=== PATIENT | female | born 1935 | race Caucasian/White ===

== ENCOUNTER 2019-08-14 17:20 | Emergency (ER) | payer MEDICARE ==
[2019-08-14] MEDS ORDERED: TYLENOL EXTRA STRENGTH 500 MG PO STA (17:55)
[2019-08-14] MEDS ORDERED: TYLENOL EXTRA STRENGTH 500 MG ONE (18:01)
--- NOTE | 2019-08-14 18:07 | ERPHSYRPT ---
- History of Present Illness Time Seen by Provider: 08/14/19 17:26 Source: patient Exam Limitations: no limitations Patient Subjective Stated Complaint: PT FELL WALKING OFF OF CURB AT LOCAL FESTIVAL. ATTEMPTED TO CATCH SELF WITH RIGHT HAND, FACE HIT CONCRETE. PT DENIES ANY OTHER JOINT PAIN OR LOSS OF CONCIOUSNESS. Triage Nursing Assessment: ALERT AND ORIENTED. SWELLING OT RIGHT HAND ON KNUCKLES. PAIN 10/10 TO RIGHT HAND. PT GUARDING HAND. SON PUSHED PT IN W/C TO ROOM. Physician History: 84-year-old female here after fall. [place] Tripped and fell on the curb. B right hand and her face. Has a bruise over her nose and upper lip but doesn't hurt. Mostly hurts in the right hand area. No loss of consciousness. No nausea vomiting. No headache. Allergies/Adverse Reactions: Sulfa (Sulfonamide Antibiotics) Allergy (Verified 08/14/19 17:42) Home Medications: Metoprolol Tartrate 25 mg [Lopressor 25MG Tab] 25 mg PO BID 08/14/19 [ History] Omeprazole 20 mg PO DAILY 08/14/19 [History] RX: Quinapril HCl 40 mg PO DAILY 08/14/19 [History] Simvastatin 20Mg [Zocor 20Mg] 20 mg PO QPM 08/14/19 [History] Hx Tetanus, Diphtheria Vaccination/Date Given: No Hx Pneumococcal Vaccination/Date Given: No - Review of Systems Constitutional: No Symptoms Eyes: No Symptoms Ears, Nose, & Throat: Ear Pain, Ear Discharge, Hearing Changes Respiratory: No Symptoms Cardiac: No Symptoms Abdominal/Gastrointestinal: No Symptoms Genitourinary Symptoms: No Symptoms Musculoskeletal: Fall Neurological: No Symptoms Immunological/Allergic: No Symptoms - Past Medical History Pertinent Past Medical History: Yes Neurological History: No Pertinent History Cardiac History: High Cholesterol, Hypertension GI Medical History: GERD History: Renal Disease - Past Surgical History Past Surgical History: Yes Gastrointestinal: Cholecystectomy - Social History Smoking Status: Never smoker Exposure to second hand smoke: No Drug Use: none Patient Lives Alone: Yes - Nursing Vital Signs Nursing Vital Signs: Initial Vital Signs Temperature 98.1 F 08/14/19 17:34 Pulse Rate 78 08/14/19 17:34 Respiratory Rate 20 08/14/19 17:34 Blood Pressure 196/134 08/14/19 17:34 O2 Sat by Pulse Oximetry 94 L 08/14/19 17:34 Pain Scale Pain Intensity 4 - [place] Coma Score Best Eye Response (Kemal): (4) open spontaneously Best Verbal Response (Kemal): (5) oriented Best Motor Response (Kemal): (6) obeys commands [place] Total: 15 - Physical Exam General Appearance: no apparent distress Head Injury: no evidence of injury Eye Exam: PERRL/EOMI, eyes nml inspection ENT Exam: airway nml ("small bruising over the nose and upper lip./ no tenderness. no oral injuries noted) Neck Exam: supple, full range of motion Respiratory/Chest Exam: normal breath sounds Cardiovascular Exam: normal heart sounds Gastrointestinal Exam: soft, normal bowel sounds Back Exam: normal inspection, normal range of motion Extremity Exam: other (Right hand swelling in the third and fourth metacarpal areas posteriorly. Decreased range of motion do to pain. Slightly tender on palpation. 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, nml cerebellar function, nml station & gait, No motor deficits, No sensory deficit Skin Exam: normal color, warm, other (as noted in heent) SpO2: 94 Ordered Tests: Active Orders 24 hr Category Date Time Status Splint STAT Care 08/14/19 20:21 Active FACIAL BONES WO CONTRAST [CT] Stat Exams 08/14/19 17:54 Taken HAND (MINIMUM 3 VIEWS) Stat Exams 08/14/19 18:47 Completed HEAD WITHOUT CONTRAST [CT] Stat Exams 08/14/19 17:54 Taken Medication Summary Discontinued Medications Generic Name Dose Route Start Last Admin Trade Name [place] PRN Reason Stop Dose Admin Acetaminophen 500 mg 08/14/19 17:55 08/14/19 18:03 Tylenol Extra Strength 500 Mg PO 08/14/19 17:56 500 mg STAT STA Administration Acetaminophen Confirm 08/14/19 18:01 Tylenol Extra Strength 500 Mg Administered 08/14/19 18:02 Dose 500 mg .ROUTE .STK-MED ONE - Progress Progress: improved Counseled pt/family regarding: diagnosis, need for follow-up (fracture of the right hand fifth and third metacarpal areas nondisplaced. Splint applied. Patient advised to followup with orthopedics in a few days time. CT head paramedics official results are not back even after 3 hours so patient did not want to stay. She denies any pain on her face or headache. No numbness tingling or weakness. And comfortable letting her go and told her if there is anything on CT I would call her.), rad results - Departure Departure Disposition: Home Clinical Impression: Facial injury, Fracture, metacarpal Condition: Stable Critical Care Time: No Referrals: MELY LIZ [Primary Care Provider] -
--- NOTE | 2019-08-14 20:33 | XRAY ---
Indication: Pain following fall. Comparison: None 3 views of the right hand demonstrates nondisplaced distal 5th metacarpal shaft and nondisplaced 3rd proximal phalanx base fractures with adjacent soft tissue swelling. Elsewhere osteopenia, mild degenerative changes, and 4th finger ring.
[2019-08-14 21:42] VITALS: BP 166/75; PULSE 66; O2SAT 96
--- NOTE | 2019-08-15 06:27 | XRAY ---
Indication: Facial injury and swelling following fall. Multiple contiguous axial images obtained through the head without contrast. Comparison: None Age-appropriate global atrophy and minimal periventricular degenerative micro-ischemia bilaterally. No acute intracranial hemorrhage, abnormal extra-axial fluid collection, or mass effect. Fourth ventricle is midline without hydrocephalus. Bony calvarium intact with incidental hyperostosis frontalis interna. There is partial opacification of the inferior left mastoid air cells. Remaining visualized paranasal sinuses and right mastoid air cells are clear. CT facial bones reported separately. Impression: Nonacute senile brain. Nonspecific opacification of the left mastoid air cells. Comment: Preliminary interpretation was made by [facility]. No critical discrepancy. CTDI 67.00
--- NOTE | 2019-08-15 10:41 | XRAY ---
Indication: Facial injury and swelling following fall. Multiple contiguous axial images obtained through the facial bones. Sagittal and coronal reformatted images obtained. Comparison: None Spine of the maxilla demonstrates displaced fracture with soft tissue swelling. No other acute fracture, suspicious bone lesions, or radiopaque foreign body. Orbits including roof, esquivel, and floors intact. Paranasal sinuses and nasal passages are clear. Mild nasal septal deviation to the left. Mild degenerative changes of both TMJ. Visualized cervical spine is intact with mild degenerative changes. Visualized noncontrasted soft tissues demonstrates heavy carotid calcifications, left greater than right. CT head reported separately. Impression: 1. Displaced fracture involving spine of the maxilla. 2. Incidental degenerative changes of the visualized cervical spine andTMJ. Comment: Preliminary interpretation was made by [facility] who does not report fracture. Telephone report given to Dr. Moffett in the ER at 1030 hrs. on August 15, 2019. CTDI 59.47
== END 2019-08-14 21:41 | disposition home or self-care (01) ==
LOC: ED 17:20
DX: S09.93XA Unspecified injury of face, initial encounter (principal); S62.306A Unspecified fracture of fifth metacarpal bone, right hand, initial encounter for closed fracture; S62.302A Unspecified fracture of third metacarpal bone, right hand, initial encounter for closed fracture; S00.33XA Contusion of nose, initial encounter; S00.531A Contusion of lip, initial encounter; W17.89XA Other fall from one level to another, initial encounter; Y93.01 Activity, walking, marching and hiking; Y92.480 Sidewalk as the place of occurrence of the external cause; I10 Essential (primary) hypertension; E78.00 Pure hypercholesterolemia, unspecified; K21.9 Gastro-esophageal reflux disease without esophagitis
CPT/HCPCS: 70450; 70486; 73130; 99284; A9270-GY